=== PATIENT | male | born 1955 | race Caucasian/White ===

== ENCOUNTER 2021-11-20 15:34 | Observation (INO) | payer BC, SELFPAY ==
--- NOTE | ~2021-11-20 | CT_ITS ---
EXAMINATION: CT abdomen pelvis w con INDICATION: Nausea, vomiting, diarrhea TECHNIQUE: Computed tomographic images of the abdomen and pelvis were obtained after the administrati on of 100 cc of Omnipaque 350 intravenous contrast. The dose-length product (DLP) was 438.59 mGy-cm. Automated exposure control and iterative reconstruction technique were employed. COMPARISON: 08/25/2015 FINDINGS: Minimal dependent atelectasis is present in the lung bases. The heart size is normal. Hypoa ttenuating areas of the liver, measuring up to 11 mm in the right hepatic lobe, likely represent cyst s. A stone is present in the nondistended gallbladder. The spleen, pancreas, and adrenal glands are n ormal. The kidneys are unremarkable. There is moderate distention of the urinary bladder. No patholog ically enlarged abdominal or pelvic lymph nodes are identified. Colonic diverticulosis is present wit hout evidence of diverticulitis. The appendix is normal. There is a greater than normal number of flu id-filled, nondistended small bowel loops. There is mild lumbar spondylosis. There is a tiny umbilica l hernia containing fat. IMPRESSION: 1. Greater than normal number of fluid-filled, nondistended small bowel loops, possibly reflecting en teritis. Reviewed, dictated and finalized at location F. IMPRESSION: 1. Greater than normal number of fluid-filled, nondistended small bowel loops, possibly reflecting enteritis.
[2021-11-20 15:45] VITALS: BP 114/76; PULSE 108; RESP 20; TEMP 37.3; O2SAT 100
[2021-11-20 16:12] VITALS: PULSE 108; RESP 18; O2SAT 98
[2021-11-20 16:26] LABS: Basophils Percent Auto 0.2 % (0.2-1.2); Eosinophils Percent Auto 0.1 % (0-4.4); Hematocrit 50.7 % (42.0-52.0); Hemoglobin 17.1 g/dL (14.0-18.0); Immature Granulocyte Absolute 0.03 K/mm3 (0.00-0.031); Immature Granulocyte Percent A 0.3 % (0-0.5); Lymphocytes Absolute Auto 0.22 K/mm3 (0.9-3.2); Lymphocytes Percent Auto 2.1 % (18.3-44.2); Mean Corpuscular HGB Conc 33.7 g/dl (32-36); Mean Corpuscular Hemoglobin 30.3 pg (26-34); Mean Corpuscular Volume 89.9 fl (80-100); Mean Platelet Volume 10.2 fl (7.4-10.4); Monocytes Absolute Auto 0.4 K/mm3 (0.1-0.6); Monocytes Percent Auto 3.6 % (2.6-8.5); Neutrophils Absolute Auto 9.7 K/mm3 (1.3-6.7); Neutrophils Percent Auto 93.7 % (45.5-73.1); Platelet Count Result 154 k/mm3 (150-375); Red Blood Count 5.64 M/mm3 (4.6-6.20); Red Cell Distribution Width 12.9 % (11.5-14.5); White Blood Count 10.4 K/mm3 (4.5-10.0)
[2021-11-20 16:41] LABS: Alanine Aminotransferase 23 U/L (4-50); Albumin Level 4.6 g/dL (3.5-5.1); Alkaline Phosphatase 85 U/L (38-126); Anion Gap 11 mmol/L (8-16); Aspartate Amino Transferase 25 U/L (17-59); Bilirubin,Total 0.6 mg/dL (0.2-1.3); Blood Urea Nitrogen 23 mg/dL (9-20); Calcium 8.8 mg/dL (8.4-10.2); Carbon Dioxide 21 mmol/L (22-30); Chloride 108 mmol/L (98-107); Estimated CRCL calculation 75 ml/min; Estimated Glomerular Filt Rate > 60; Glucose 135 mg/dL (65-110); Lipase 35 U/L (23-300); Potassium 4.1 mmol/L (3.4-5.0); Sodium 140 mmol/L (137-145)
--- NOTE | 2021-11-20 17:29 | ED.NAVMDI ---
HPI - Nausea/Vomiting/Diarrhea General Chief complaint: Nausea/Vomiting/Diarrhea Stated complaint: n/v/d Time Seen by Provider: 11/20/21 16:49 History of Present Illness HPI Narrative: Patient is a 65-year-old male with a history of prostatitis presents emergency department via EMS for evaluation of nausea, vomiting, and diarrhea today. He reports about 10 episodes of vomiting nonbloody, nonbilious emesis and nonbloody diarrhea approximately every 15 minutes for the past 12 hours. Additionally reporting some lower abdominal cramping, most severe in his right lower quadrant. He has not attempted p.o. since 11 AM today, but he continues to vomit and have diarrhea. States his daughter had similar symptoms yesterday, although they did not eat the same thing. Reports chills, but no fevers. No history of surgeries on his abdomen. He was experiencing cloudy urine and dysuria earlier this month, and was treated for presumed UTI with a course of Cipro, which she completed 2 weeks ago. states that his cloudy urine returned about 2 days ago. No hematuria, back pain. He is on a 3-year colonoscopy schedule for polyps. Related Data Home Medications Medication Instructions Recorded Confirmed bupropion HCl 150 mg PO BID 11/21/21 11/21/21 levothyroxine [Synthroid] 137 mcg PO DAILY 11/21/21 11/21/21 metoprolol succinate 25 mg PO DAILY 11/21/21 11/21/21 potassium citrate 10 meq PO DAILY 11/21/21 11/21/21 Allergies Allergy/AdvReac Type Severity Reaction Status Date / Time No Known Allergies Allergy Verified 11/21/21 01:55 Review of Systems Review of Systems: Gen.: Denies fevers or chills Eyes: Denies eye pain or visual change ENT: Denies congestion Respiratory: Denies shortness of breath or cough CV: Denies chest pain or palpitations GI: Reports abdominal pain nausea, emesis or diarrhea : Reports cloudy urine. Denies burning, urgency, frequency or hematuria Musculoskeletal: Denies back pain or muscle pain Neuro: Denies numbness, tingling, weakness or focal weakness Skin: Denies rash Except as documented, all other systems reviewed and negative All systems reviewed & are unremarkable except as noted in HPI and below PMFSH Social History Social History Smoking status: Never smoker Second hand tobacco smoke exposure: No Alcohol intake: current Drinks per week: 5 Substance use: never Spiritual care concerns: No Exam Narrative: APPEARANCE: Uncomfortable, but nontoxic appearing. Head: normocephalic and atraumatic. EYES: PERRLA/EOMI, conjunctivae clear NOSE: No nasal drainage EARS: External ear normal in appearance THROAT: Oropharynx is clear. Mucous membranes are moist. NECK: Supple. No adenopathy, no masses. RESPIRATORY: Airway patent, respirations nonlabored. Clear to auscultation bilaterally, no rales, rhonchi, wheezing. CARDIOVASCULAR: Regular rate and rhythm without murmurs, rubs, or gallops. ABDOMINAL: Tenderness and involuntary guarding in the right lower quadrant. Nondistended no rebound tenderness. : Moderate amount of loose stool around rectal vault. No blood in rectal vault. Good rectal tone, prostate is nontender. MUSCULOSKELETAL: Extremities are warm and well-perfused. Moves all extremities well. No edema. NEURO: Normal speech. No focal neurologic deficits. SKIN: Skin is warm and dry. No rashes. PSYCHIATRIC: Normal affect/mood. Course Course Emergency Course: Vital Signs Vital signs: Vital Signs Temperature 99.2 F 11/20/21 15:45 Pulse Rate 108 H 11/20/21 15:45 Respiratory Rate 20 11/20/21 15:45 Blood Pressure 114/76 11/20/21 15:45 Pulse Oximetry 100 11/20/21 15:45 Temperature 98.0 F 11/21/21 01:15 Pulse Rate 99 11/21/21 01:15 Respiratory Rate 18 11/21/21 01:15 Blood Pressure 107/61 11/21/21 01:15 Pulse Oximetry 98 11/21/21 01:15 MDM - Nausea/Vomiting/Diarrhea MDM Narrative Medical decision making narrative: 65-year-old male here for evaluation of
[2021-11-20] MEDS: ONDANSETRON INJ 4 MG/2 ML VIAL IV PUSH (17:39)
[2021-11-20] MEDS: SODIUM CHLORIDE 0.9% IV 1,000 ML 999 ML IV CONT (17:39)
[2021-11-20 19:13] VITALS: BP 111/73; PULSE 78; RESP 18; O2SAT 98
--- NOTE | 2021-11-20 19:32 | PC.NURSE ---
upon attempt to d/c pt states he feels worse than he did previous. Also requested urinal. PA made aware and new orders received.
[2021-11-20] MEDS: METOCLOPRAMIDE HCL INJ 10 MG/2 ML VIAL IV PUSH (19:41)
--- NOTE | 2021-11-20 19:46 | PC.NURSE ---
Pt up to [facility] at this time for BM
--- NOTE | 2021-11-20 20:02 | PC.NURSE ---
Pt reports worsening of s/s and states he is now weak. PA made aware.
--- NOTE | 2021-11-20 20:04 | ECG_ITS ---
Measurements Intervals [place] Rate: 111 P: 44 CO: 168 QRS: 67 QRSD: 112 T: 50 QT: 333 QTc: 453 Interpretive Statements SINUS TACHYCARDIA LOW QRS VOLTAGE IN EXTREMITY LEADS [QRS DEFLECTION < 0.5 mV IN LIMB LEADS] INCOMPLETE RIGHT BUNDLE BRANCH BLOCK [90+ ms QRS DURATION, TERMINAL R IN V1/V2, 40+ ms S IN I/aVL/V4/V5/V6] ABNORMAL RHYTHM ECG NO PREVIOUS ECG AVAILABLE FOR COMPARISON Electronically Signed On 11-21-2021 15:02:48 CDT by Chito Walter M.D.
[2021-11-20] MEDS: SODIUM CHLORIDE 0.9% IV 500 ML 999 ML IV CONT (20:15)
[2021-11-20 20:24] LABS: Appearance Urine Clear (Clear); Bilirubin Urine Negative (Negative); Blood Urine Negative (Negative); Color Urine Yellow (Yellow); Glucose Urine UA Negative (Negative); Ketones Urine Negative (Negative); Leukocyte Esterase Ur Negative LEU/UL (Negative); Nitrate Urine Negative (Negative); Protein Urine Negative (Negative); Urobilinogen Urine 0.2 mg/dL (<2.0); pH Urine 5.5 (5.0-9.0)
[2021-11-20 20:28] LABS: Bacteria Urine Trace /hpf; Mucus Urine Rare /lpf; Squamous Epithelial Cell Urine Rare /hpf (Few); WBC Urine 21-30 /hpf
[2021-11-20 20:34] LABS: Add Urine Microscopic? NO
[2021-11-20 20:35] VITALS: BP 171/98; PULSE 134; RESP 18; O2SAT 98
[2021-11-20 21:47] VITALS: BP 99/54; PULSE 107; RESP 18; O2SAT 98
[2021-11-20] MEDS: LACTATED RINGERS 1,000 ML 999 ML IV CONT (22:19)
--- NOTE | 2021-11-20 23:10 | PC.NURSE ---
Assumed care of pt. at this time. Report from UNA Shirley
[2021-11-20 23:26] VITALS: BP 130/83; PULSE 110; RESP 14; O2SAT 97
[2021-11-21] MEDS: SODIUM CHLORIDE 0.9% IV 1,000 ML 999 ML IV CONT (00:08)
[2021-11-21 01:05] VITALS: BP 122/74; PULSE 110; RESP 14; O2SAT 99
[2021-11-21 01:15] VITALS: BP 107/61; PULSE 99; RESP 18; TEMP 36.7; O2SAT 98; BMI 24.3
[2021-11-21 01:21] LABS: Toxigenic C. Diff NEGATIVE (NEGATIVE)
--- NOTE | 2021-11-21 01:30 | ADMGEN ---
This patient, Fer Shaffer, was admitted to [address] [facility] Surg Room 301-01. Patient/family oriented to hospital policies and general routines including ID bracelet, bed and alarms, visiting hours, pain management, procedures, bathroom and other care routines, personal items, smoking policy, room service/diet, and visiting hours. Information on how to activate the Rapid Response Team has been discussed. Patient/Family are encouraged to report perceived risks to care and to ask questions if they do not understand what they are told or what they should do.
--- NOTE | 2021-11-21 02:10 | PC.NURSE ---
11/21/21 021 pt states he gets his medications from [facility] located in [place], [place]. i was not able to edit to enter the information into the computer. however pt did confirm his home meds which this nurse did enter into the computer.
[2021-11-21] MEDS: SODIUM CHLORIDE 0.9% IV 1,000 ML 125 ML IV CONT ×2 (02:31→08:51)
--- NOTE | 2021-11-21 03:39 | PM.IMHP ---
H&P: HPI History of Present Illness Date/Time: 11/21/21 03:39 Chief Complaint: Nausea, vomiting and diarrhea Narrative: 65-year-old male with a past medical history of anxiety, essential hypertension and hypothyroidism who presented to the ER via EMS with 1 day of nausea vomiting and diarrhea. The patient reported that he started to feel ill on Wednesday. However was not until morning that he began having diarrhea followed by vomiting. He has had least 10 episodes of nonbloody, nonbilious emesis. Is been associated with watery brown stools too many times to count. He has been having diarrhea about once an hour. He had his last bout of emesis while he was in the ER. He reports some lower abdominal cramping that is intermittent and mostly located in his right lower quadrant. The cramping was moderate in nature and what occurred just before he has to have a bowel movement. Despite not eating for about 6 hours the patient was still having continued vomiting and diarrhea. He did have bout of cloudy urine and dysuria earlier in the month and was treated for presumed UTI with Cipro. He completed antibiotics 2 weeks ago. He has been having cloudy urine for 2 days. He denies any hematuria. He denies any dysuria currently. He has been feeling hot but has not had any measured fevers. He does have a history kidney stones but denies any flank pain. He takes potassium citrate for his history kidney stones. A CT was checked in the ER which demonstrated no acute in her abdominal process. In the ER the patient was noted to be tachycardic he received 1.5 L of IV fluids. He did have a transient period of his blood pressure being below 100 systolic in the ER. The patient was still feeling weak after on IV fluids and extremely nauseated. Patient was subsequently admitted for observation. The patient's daughter became ill around the same time as the patient but his daughter symptoms have already improved and she is already eating and drinking. No one else in the family has been ill. They were unable to track symptoms to any known food exposures. Review of Systems Review of Systems: 12 systems were reviewed with pertinent positives and negatives per HPI. Except as documented in the HPI, all other systems were reviewed and are negative. [facility] Past Medical History Medical History (Updated 11/21/21 @ 03:58 by Precious Vela DO) Anxiety Essential hypertension Hypothyroidism Kidney stones Surgical History Surgical History (Updated 11/21/21 @ 03:58 by Precious Vela DO) History of lithotripsy History of partial thyroidectomy Due to goiter Family History Family History (Updated 11/21/21 @ 03:57 by Precious Vela DO) Other No significant family history Social History Social History (Updated 11/21/21 @ 03:59 by Precious Vela DO) Social History: The patient lives outside of [place]. He is in time visiting his son. He has been for 42 years. He has 2 children. He retired in October. He drinks 3-4 beers a week he denies any illicit substances. He is a lifelong nonsmoker. Code status: Do not intubate Surrogate decision maker: Smoking status: Never smoker Second hand tobacco smoke exposure: No Alcohol intake: current Drinks per week: 5 Substance use: never Spiritual care concerns: No Meds Home Medications and Allergies Home Medications Medication Instructions Recorded Confirmed Type bupropion HCl 150 mg PO BID 11/21/21 11/21/21 History levothyroxine [Synthroid] 137 mcg PO DAILY 11/21/21 11/21/21 History metoprolol succinate 25 mg PO DAILY 11/21/21 11/21/21 History potassium citrate 10 meq PO DAILY 11/21/21 11/21/21 History Allergies Allergy/AdvReac Type Severity Reaction Status Date / Time No Known Allergies Allergy Verified 11/21/21 01:55 Vital Signs Vital Signs - 24 hr 11/20/21 15:45 11/20/21 16:12 11/20/21 19:13 Temperature 99.2 F Pulse
[2021-11-21 05:47] VITALS: BP 124/73; PULSE 99; RESP 17; TEMP 36.7; O2SAT 98
[2021-11-21 07:15] LABS: Anion Gap 4 mmol/L (8-16); Blood Urea Nitrogen 16 mg/dL (9-20); Calcium 7.4 mg/dL (8.4-10.2); Carbon Dioxide 22 mmol/L (22-30); Chloride 111 mmol/L (98-107); Estimated CRCL calculation 84 ml/min; Estimated Glomerular Filt Rate > 60; Glucose 106 mg/dL (65-110); Potassium 3.4 mmol/L (3.4-5.0); Sodium 137 mmol/L (137-145)
[2021-11-21] MEDS: ONDANSETRON INJ 4 MG/2 ML VIAL IV PUSH (08:54)
[2021-11-21] MEDS: LEVOTHYROXINE SODIUM 112 MCG TABLET PO (08:56)
[2021-11-21] MEDS: buPROPion HCL SR (12 HR) 150 MG TAB PO (08:56)
[2021-11-21] MEDS: LEVOTHYROXINE SODIUM 25 MCG TABLET PO (08:56)
--- NOTE | 2021-11-21 11:08 | PM.IMPN ---
Subjective Date/time seen: 11/21/21 11:08 Interval history: HPI: 65-year-old male with a past medical history of anxiety, essential hypertension and hypothyroidism who presented to the ER via EMS with 1 day of nausea vomiting and diarrhea. The patient reported that he started to feel ill on Wednesday. However was not until morning that he began having diarrhea followed by vomiting. He has had least 10 episodes of nonbloody, nonbilious emesis. Is been associated with watery brown stools too many times to count. He has been having diarrhea about once an hour. He had his last bout of emesis while he was in the ER. He reports some lower abdominal cramping that is intermittent and mostly located in his right lower quadrant. The cramping was moderate in nature and what occurred just before he has to have a bowel movement. Despite not eating for about 6 hours the patient was still having continued vomiting and diarrhea. He did have bout of cloudy urine and dysuria earlier in the month and was treated for presumed UTI with Cipro. He completed antibiotics 2 weeks ago. He has been having cloudy urine for 2 days. He denies any hematuria. He denies any dysuria currently. He has been feeling hot but has not had any measured fevers. He does have a history kidney stones but denies any flank pain. He takes potassium citrate for his history kidney stones. A CT was checked in the ER which demonstrated no acute in her abdominal process. In the ER the patient was noted to be tachycardic he received 1.5 L of IV fluids. He did have a transient period of his blood pressure being below 100 systolic in the ER. The patient was still feeling weak after on IV fluids and extremely nauseated. Patient was subsequently admitted for observation. The patient's daughter became ill around the same time as the patient but his daughter symptoms have already improved and she is already eating and drinking. No one else in the family has been ill. They were unable to track symptoms to any known food exposures. 11/21/2021 Objective Data Vital Signs Vital Signs: Vital Signs - 24 hr 11/20/21 15:45 11/20/21 16:12 11/20/21 19:13 Temperature 99.2 F Pulse Rate 108 H 108 H 78 Respiratory Rate 20 18 18 Blood Pressure 114/76 111/73 Pulse Oximetry 100 98 98 11/20/21 20:35 11/20/21 21:47 11/20/21 23:26 Temperature Pulse Rate 134 H 107 H 110 H Respiratory Rate 18 18 14 Blood Pressure 171/98 H 99/54 L 130/83 Pulse Oximetry 98 98 97 11/21/21 01:05 11/21/21 01:15 11/21/21 05:47 Temperature 98.0 F 98.0 F Pulse Rate 110 H 99 99 Respiratory Rate 14 18 17 Blood Pressure 122/74 107/61 124/73 Pulse Oximetry 99 98 98 Intake/Output Intake/Output: Intake & Output 11/18/21 11/19/21 11/20/21 11/21/21 23:59 23:59 23:59 23:59 Intake Total 2500 2325 Output Total 200 Balance 2500 2125 Meds/Results Medications: Active Medications Generic Name Dose Route Start Last Admin Trade Name Freq PRN Reason Stop Dose Admin Bupropion HCl 150 mg 11/21/21 09:00 11/21/21 08:56 Bupropion Hcl Sr (12 Hr) 150 Mg Tab PO 150 mg Q12HR SARITA Administration Sodium Chloride 1,000 mls @ 125 mls/hr 11/20/21 22:35 11/21/21 08:51 Normal Saline Iv IV CONT 125 mls/hr .Q8H SARITA Administration Levothyroxine Sodium 112 mcg 11/21/21 09:00 11/21/21 08:56 Levothyroxine Sodium 112 Mcg Tablet PO 112 mcg DAILY SARITA Administration Levothyroxine Sodium 25 mcg 11/21/21 09:00 11/21/21 08:56 Levothyroxine Sodium 25 Mcg Tablet PO 25 mcg DAILY SARITA Administration Ondansetron HCl 4 mg 11/20/21 22:35 11/21/21 08:54 Ondansetron Inj 4 Mg/2 Ml Vial IV PUSH 4 mg Q4H PRN Administration Nausea Radiology Results: ITS Impressions Abdomen/Pelvis CT 11/20/21 18:45 IMPRESSION: 1. Greater than normal number of fluid-filled, nondistended small bowel loops, possibly reflecting enteritis. Labs Labs: Laboratory Results - l
--- NOTE | 2021-11-21 12:41 | PC.NURSE ---
pt's , Joan, called wanting an update. I attempted twice to return her call without reaching her.
[2021-11-21 14:00] VITALS: BP 121/81; PULSE 93; RESP 17; TEMP 37.1; O2SAT 98
--- NOTE | 2021-11-21 15:43 | PM.DS ---
DS: Admitting Diagnosis Discharge Date 11/21/2021 Admitting Diagnosis Nausea vomiting diarrhea DS: Discharge Diagnosis Discharge Diagnosis (1) Gastroenteritis: Code(s): K52.9 - Noninfective gastroenteritis and colitis, unspecified Status: Acute (2) Dehydration: Code(s): E86.0 - Dehydration Status: Acute DS: Summary Hospital Course Hospital Course: This is a 65-year-old male with a past medical history of anxiety, essential hypertension and hypothyroidism who presented to the ER via EMS with 1 day of nausea vomiting and diarrhea. The patient reported that he started to feel ill on Wednesday. However was not until morning that he began having diarrhea followed by vomiting. He has had least 10 episodes of nonbloody, nonbilious emesis. Is been associated with watery brown stools too many times to count. He has been having diarrhea about once an hour. He had his last bout of emesis while he was in the ER. He reports some lower abdominal cramping that is intermittent and mostly located in his right lower quadrant. The cramping was moderate in nature and what occurred just before he has to have a bowel movement. Despite not eating for about 6 hours the patient was still having continued vomiting and diarrhea. He did have bout of cloudy urine and dysuria earlier in the month and was treated for presumed UTI with Cipro. He completed antibiotics 2 weeks ago. He has been having cloudy urine for 2 days. He denies any hematuria. He denies any dysuria currently. He has been feeling hot but has not had any measured fevers. He does have a history kidney stones but denies any flank pain. He takes potassium citrate for his history kidney stones. A CT was checked in the ER which demonstrated no acute in her abdominal process. In the ER the patient was noted to be tachycardic he received 1.5 L of IV fluids. He did have a transient period of his blood pressure being below 100 systolic in the ER. The patient was still feeling weak after on IV fluids and extremely nauseated. Patient was subsequently admitted for observation. Patient was admitted for observation I treated with IV fluids hydration. He continued improvement in his diarrhea slowed down as well. He was started diet clear liquid which is tolerated well without nausea was advanced further to regular diet which he tolerated as well. He is discharged home advised to continue keep hydrated. Zofran p.r.n. order for possible Time Spent with Patient Time attestation: Total time spent providing and/or coordinating discharge services: 45 minutes Exam Narrative: General: well appearing, well-developed well-nourished, appears in his stated age HEENT: Good dentition, mucous membranes are moist, mild posterior oral pharyngeal erythema, no scleral icterus, no conjunctival pallor Respiratory: Clear to auscultation bilaterally, no increased work of breathing Cardiovascular: Regular rate and rhythm, no murmur, 2+ bilateral radial pedal pulses Gastrointestinal: Hyperactive bowel sounds, soft, nontender, no organomegaly Skin: Warm to touch, non jaundice, no pallor Musculoskeletal: No clubbing, cyanosis or edema Neurological: Alert oriented, speech is clear, no facial asymmetry Psychiatric: Appropriate mood and affect, pleasant and cooperative Hematologic/lymphatic: No anterior cervical lymphadenopathy, no petechiae, no bruising DS: Data Data Completed and Pending Labs on day of discharge: Labs from last 24 hours 11/21/21 11/21/21 11/20/21 05:56 00:06 19:49 WBC RBC Hgb Hct MCV MCH MCHC RDW Plt Count MPV Immature Gran % (Auto) Neut % (Auto) Lymph % (Auto) Stark % (Auto) Eos % (Auto) Baso % (Auto) Lymph # (Auto) Stark # (Auto) Eos # (Auto) Baso # (Auto) Abs Immat Gran (auto) Absolute Neuts (auto) Absolute Nucleated RBC Nucleated RBC % Sodium 137 Potassium 3.4 Chloride
== END 2021-11-21 16:15 | disposition home or self-care (01) ==
LOC: ANHED 19:27 → ANH3MEDSUR 11-21 03:36
PROVIDERS: Physician Assistant; Admitting Provider Internal Medicine; Emergency Provider Emergency Medicine; Visit Provider Internal Medicine
DX: K52.9 Noninfective gastroenteritis and colitis, unspecified (principal); E86.0 Dehydration; I10 Essential (primary) hypertension; E89.0 Postprocedural hypothyroidism; F41.9 Anxiety disorder, unspecified
CPT/HCPCS: 36415; 74177; 80048; 80053; 81003; 83690; 85025; 87086; 87088; 87493; 93005; 96361; 96374; 96375; 96376; 99285; A9270; G0378; J0131; J2405; J2765; J7030; J7040; J7120; Q9967